=== PATIENT | male | born 1970 | race Caucasian/White ===

== ENCOUNTER 2019-10-02 00:38 | Emergency (ER) | payer BC, SELFPAY ==
[2019-10-02] MEDS ORDERED: EPINEPHrine 1 MG/10 ML SYR IV ONE (00:39)
[2019-10-02] MEDS ORDERED: EPINEPHRINE/PF 1 MG/ML AMP IV ONE (00:39)
--- NOTE | 2019-10-02 01:08 | EDPHYS ---
Physician Documentation [facility] Name: Ketan Ngo Age: 48 yrs Sex: Male : 1970 Arrival Date: 10/02/2019 Time: 00:38 Bed 3 Private MD: ED Physician Ry Duong HPI: 10/02 00:51 This 48 yrs old Male presents to ER via Unassigned with complaints of CPR. desi 00:51 Preceding the arrest, the patient collapsed, was dyspneic. The arrest occurred at home. desi Pre-hospital course: The arrest was witnessed Bystanders at the scene did not perform CPR. The patient has not experienced similar symptoms in the past. Historical: - Allergies: 00:52 NKDA; desi - Family history:: not pertinent. ROS: 00:52 Unable to obtain ROS due to sp cpr, unsuccessful. desi Exam: 00:52 Cardiovascular: Rate: actual rate is 0 bpm, Rhythm: pea, asystole, Pulses: not desi palpable, Heart sounds: none, JVD: is not appreciated. Vital Signs: 00:34 Pulse 0; jb4 00:47 Pulse 0; Resp 0; aa1 Procedures: 00:53 Central Line: the site was prepped with in sterile fashion, a triple lumen catheter was desi inserted, in the right femoral vein, in 1 attempts. placement was verified, by blood return, the site was dressed with Tegaderm, using sterile technique. MDM: 00:51 Patient medically screened. desi 00:53 Data reviewed: vital signs, nurses notes. desi Administered Medications: 00:36 Drug: EPINEPHrine 0.1mg/mL 1:10,000 1 mg {Note: Administered in I/o in right tibia.} jb4 Route: IVP; Site: Other; 00:37 Drug: Sodium Bicarbonate 1 amp {Note: Administered in I/o in right tibia.} Route: IVP; jb4 Site: Other; 00:39 Drug: EPINEPHrine 0.1mg/mL 1:10,000 1 mg {Note: Administered in I/o in right tibia.} jb4 Route: IVP; Site: Other; 00:41 Drug: EPINEPHrine (PF) 1mg/mL 1:1,000 1 mg Route: IV; Rate: bolus; Site: right femoral; jb4 00:42 Drug: Sodium Bicarbonate 1 amp Route: IVP; Site: right femoral; jb4 00:46 Drug: EPINEPHrine 0.1mg/mL 1:10,000 1 mg Route: IVP; Site: right femoral; jb4 Disposition: Patient pronounced on 10/02/19 00:47 by Ry Duong. Impression: Cardiac arrest. - Released to Field Sales Specialist. Signatures: Amber Solo RN RN aa1 Ry Duong MD MD cha Bryson, James, RN RN jb4 Corrections: (The following items were deleted from the chart) 03:06 00:55 10/02/2019 00:55 Patient pronounced on 10/02/2019 at 00:47 by Ry Duong. aa1 Impression: Cardiac arrest. Released to Field Sales Specialist. desi
--- NOTE | 2019-10-02 01:08 | ER ---
[facility] Name: Ketan Ngo Age: 48 yrs Sex: Male : 1970 Arrival Date: 10/02/2019 Time: 00:38 Bed 3 Private MD: Diagnosis: Cardiac arrest Presentation: 10/02 00:34 Presenting complaint: EMS states: PT reportedly had been diagnosed with bronchitis for jb4 the past 2 days. We were called out for shortness of breath. was going to get breathing treatments and when she came back they saw him go unresponsive. PT was in PEA upon arrival and in transit. Pt was given 8 epi, 50meq of bicarb, 1gm of calcium chloride. Pt was intubated with 8.0 ET tube 24 \T\ the teeth. Had a 16 bermudian NG tube inserted. 00:34 Care prior to arrival: CPR via thumper and is still in progress Cervical collar in jb4 place. Medication(s) given: 8 of EPI, 50 mEq of sodium bicarb, 1gm calcium chloride. Glucose check: 107 Oxygen administered. via AMBU bag Intubated, ET tube 8.0 24 \T\ teeth. 16 bermudian NG tube. Compressions began prior to arrival. 00:34 Method Of Arrival: EMS: [facility] jb4 00:34 Acuity: RANULFO 1 jb4 Historical: - Allergies: 00:52 NKDA; desi - Family history:: not pertinent. Assessment: 00:34 CPR assessment: unresponsive, intubated, Ambu ventilation, cyanotic, pale, pulses jb4 absent w/ compressions. Cardiac rhythm is asystole. 00:34 General: Behavior is unresponsive. Neuro: Level of Consciousness is unresponsive. jb4 Cardiovascular: Rhythm is asystole. Respiratory: Airway via oral intubation. Derm: Skin is pale, Cyanotic. 00:36 General: Behavior is unresponsive. Neuro: Level of Consciousness is unresponsive, aa1 Pupils are fixed, non-reactive. Cardiovascular: Capillary refill is > 3 seconds Rhythm is PEA. Respiratory: Airway via oral intubation Respiratory effort is none. GI: Abdomen is round. Derm: Skin is intact, Skin is dry, Skin is dusky, Skin temperature is cool. Musculoskeletal: Capillary refill is > 3 seconds. 00:39 Reassessment: PT in asystole. jb4 00:41 Reassessment: Pt remains in asystole. jb4 00:46 Reassessment: Pt remains in asystole. jb4 00:47 Reassessment: Code called and Pt pronounced \T\ 0047. 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 case #[id number]. aa1 Vital Signs: 00:34 Pulse 0; jb4 00:47 Pulse 0; Resp 0; aa1 ED Course: 00:34 Patient arrived in ED. aa1 00:34 alarm security or surveillance monitor on. Pulse ox on. NIBP on. aa1 00:34 Accessed IO L tibia Flushes easily. Assist ventilation with Ambu bag. aa1 00:40 Assisted provider with central line placement. Set up central line tray. Triple lumen aa1 line placed in right femoral. Line placed by Ry Duong MD Placement verified by blood return, Dressed with Tegaderm. 00:51 Ry Duong MD is Attending Physician. [facility] 00:54 Triage completed. [facility] 00:55 Ry Duong MD is Pronouncing Provider. [facility] 00:58 Amber Solo, RN is Primary Nurse. aa1 Administered Medications: 00:36 Drug: EPINEPHrine 0.1mg/mL 1:10,000 1 mg {Note: Administered in I/o in right tibia.} jb4 Route: IVP; Site: Other; 00:37 Drug: Sodium Bicarbonate 1 amp {Note: Administered in I/o in right tibia.} Route: IVP; jb4 Site: Other; 00:39 Drug: EPINEPHrine 0.1mg/mL 1:10,000 1 mg {Note: Administered in I/o in right tibia.} jb4 Route: IVP; Site: Other; 00:41 Drug: EPINEPHrine (PF) 1mg/mL 1:1,000 1 mg Route: IV; Rate: bolus; Site: right femoral; jb4 00:42 Drug: Sodium Bicarbonate 1 amp Route: IVP; Site: right femoral; jb4 00:46 Drug: EPINEPHrine 0.1mg/mL 1:10,000 1 mg Route: IVP; Site: right femoral; jb4 Outcome: 00:47 Outcome Patient jb4 00:47 Patient : jb4 00:47 Condition: 03:06 Patient : Time of 00:47 Pronounced by Ry Duong MD Body released to aa1 OR 03:06 Patient left the ED. aa1 Signatures: Amber Solo RN RN aa1 Ry Duong MD MD cha Sanford, Demi ds1 Eliceo Beltran, JOSEPH RN jb4 Corrections: (The following items were deleted from the chart) 00:56 00:34 Care prior to arrival: CPR via thumper and is still in progress Cervical collar jb4 in place. Glucose check: 107 Oxygen administered. via AMBU bag Intubated, ET tube 8.0 24 \T\ teeth. 16 bermudian NG tube. jb4 01:03 00:38 Patient arrived in ED. ds1 aa1
== END 2019-10-02 03:06 ==
LOC: ER 00:38
PROC: 06HM33Z Insertion of Infusion Device into Right Femoral Vein, Percutaneous Approach (ICD-10-PCS; principal; 2019-10-02)
DX: I46.9 Cardiac arrest, cause unspecified (principal)
CPT/HCPCS: 92950; 99285; 36556; J0171 ×2